=== PATIENT | female | born 1980 | race Caucasian/White ===

== ENCOUNTER 2022-06-21 11:09 | Day surgery (SDC) | payer BC ==
[~2022-06-21] VITALS: Ht 175.3 cm; Wt 76.9 kg
[2022-06-21 11:45] VITALS: BP 115/73
[2022-06-21] MEDS ORDERED: normal saline 1000ml 1,000 ML IV PRN (11:50)
[2022-06-21] MEDS ORDERED: CALC1CAP21 PO (11:50)
[2022-06-21] MEDS ORDERED: LIDOcaine 1% W/epiNEPHrine 1:100,000 20ml vial ONE (12:55)
[2022-06-21] MEDS ORDERED: midazolam 1 mg/ML 2ml injection ONE (12:55)
[2022-06-21] MEDS ORDERED: heparin sodium, porcine/PF 100unit/ml 5ML syringe ONE (12:55)
[2022-06-21] MEDS ORDERED: fentaNYL/PF 50MCG/1 ML 2ML syringe ONE (12:56)
[2022-06-21 14:05] VITALS: BP 122/65
[2022-06-21 14:20] VITALS: BP 124/75
[2022-06-21 14:35] VITALS: BP 109/66
[2022-06-21 14:50] VITALS: BP 114/76
== END 2022-06-21 15:00 | disposition home or self-care (01) ==
LOC: SSTAY O 11:09
PROVIDERS: ATTEND Preventive Medicine Aerospace Medicine
DX: C50.911 Malignant neoplasm of unspecified site of right female breast (principal); D70.1 Agranulocytosis secondary to cancer chemotherapy
CPT/HCPCS: 36561; 76937; 77001; 99152; 99153; C1788; C1894; J1642; J2250; J3010; J3490; J7030; A4620